=== PATIENT | male | born 1960 | race Caucasian/White ===

== ENCOUNTER 2016-11-06 17:36 | Emergency (ER) | payer OTHER ==
[~2016-11-06] VITALS: Ht 172.7 cm; Wt 89.0 kg
[2016-11-06 17:40] VITALS: Ht 172.7 cm; Wt 89.0 kg
--- NOTE | 2016-11-06 18:10 | ERA ---
ER Documentation Chief Complaint Date/Time DATE: 11/06/16 TIME: 18:09 Chief Complaint AGITATED HPI The patient is a 55-year-old male, presenting because he has aggressive behavior according to the caregiver. He threatened to kill himself if he did not get what he wanted from the caregiver. He has been agitated before but never this bad according to the caregiver. History is very limited due to his mental status, the history is obtained from the caregiver. He does not smoke nor drink Past medical history: Mentally challenged, depression, anxiety, schizophrenia X Past medical history: Unable to obtain due to his condition ROS All systems reviewed and are negative except as per history of present illness. Physical Exam Vitals Vital Signs Date Time Temp Pulse Resp B/P Pulse Ox O2 Delivery O2 Flow Rate FiO2 11/06/16 17:40 99.2 92 18 140/89 99 Physical Exam Const: No acute distress. Head: Atraumatic. Eyes: Normal Conjunctiva. ENT: Normal External Ears, Nose and Mouth. Neck: Full range of motion. No meningismus. Resp: Clear to auscultation bilaterally. Cardio: Regular rate and rhythm. Abd: Soft, non distended, normal bowel sounds, non tender. Skin: No petechiae or rashes. Back: No midline or flank tenderness. Ext: No cyanosis, or edema. Neur: Awake and alert. No focal deficit Psych: Agitated, talkative. Result Diagram: 11/06/16184911/06/16 1850 Results 24 hrs Laboratory Tests Test 11/06/16 18:50 White Blood Count 7.810^3/ul Red Blood Count 3.9810^6/ul Hemoglobin 12.8g/dl Hematocrit 37.7% Mean Corpuscular Volume 94.7fl Mean Corpuscular Hemoglobin 32.2pg Mean Corpuscular Hemoglobin Concent 34.0g/dl Red Cell Distribution Width 11.0% Platelet Count 86362^3/UL Mean Platelet Volume 9.4fl Neutrophils % 47.4% Lymphocytes % 35.5% Monocytes % 13.4% Eosinophils % 2.6% Basophils % 0.5% Nucleated Red Blood Cells % 0.0/100WBC Neutrophils # 3.710^3/ul Lymphocytes # 2.810^3/ul Monocytes # 1.110^3/ul Eosinophils # 0.210^3/ul Basophils # 0.010^3/ul Nucleated Red Blood Cells # 0.010^3/ul Urine Color YELLOW Urine Clarity CLEAR Urine pH 7.0 Urine Specific [place] 1.012 Urine Ketones NEGATIVEmg/dL Urine Nitrite NEGATIVEmg/dL Urine Bilirubin NEGATIVEmg/dL Urine Urobilinogen 1+mg/dL Urine Leukocyte Esterase NEGATIVELeu/ul Urine Microscopic RBC 10/HPF Urine Microscopic WBC 0/HPF Urine Hemoglobin 1+mg/dL Urine Glucose NEGATIVEmg/dL Urine Total Protein NEGATIVEmg/dl Sodium Level 131mmol/L Potassium Level 4.2mmol/L Chloride Level 97mmol/L Carbon Dioxide Level 27mmol/L Anion Gap 11 Blood Urea Nitrogen 14mg/dl Creatinine 0.92mg/dl Glucose Level 107mg/dl Calcium Level 8.8mg/dl Total Bilirubin 0.2mg/dl Direct Bilirubin 0.00mg/dl Indirect Bilirubin 0.2mg/dl Aspartate Amino Transf (AST/SGOT) 24IU/L Alanine Aminotransferase (ALT/SGPT) 34IU/L Alkaline Phosphatase 58IU/L Total Protein 7.0g/dl Albumin 3.9g/dl Globulin 3.10g/dl Albumin/Globulin Ratio 1.25 Salicylates Level < 1.0mg/dl Urine Opiates Screen Negative Acetaminophen Level < 10.0ug/ml Urine Barbiturates Negative Urine Amphetamines Screen Negative Urine Benzodiazepines Screen Negative Urine Cocaine Screen Negative Urine Cannabinoids Negative Ethyl Alcohol Level < 10.0mg/dl Procedures/MDM MEDICAL MAKING DECISION: Patient is a 55-year-old male, presenting with acute suicidal ideation, acute agitation. He was evaluated by tele-psychiatrist who put him on 5150 hold. He recommended Latuda; however it is not available in the pharmacy The differential diagnoses considered include but are not limited to decompensated psychiatric illness, anxiety attack, panic attack Departure Diagnosis: Primary Impression: Suicidal ideation Additional Impression: Anemia Condition: Stable Comments He is awaiting for PET evaluation The patient's blood pressure was elevated (>120/80) but appears stable without evidence of hypertension emergency or urgency. The patient was counseled about the risks of hypertension and urged to pursue outpatient monitoring and therapy within a week with their primary care physician. ELIANE SEAY MD Nov 06, 2016 18:10
[2016-11-06 19:05] LABS: BASOPHILS % 0.5 % (0.0-2.0); EOSINOPHILS # 0.2 10^3/ul (0.0-0.5); EOSINOPHILS % 2.6 % (0.0-7.0); HEMATOCRIT 37.7 % (42.0-52.0); HEMOGLOBIN 12.8 g/dl (14.0-18.0); LYMPHOCYTES # 2.8 10^3/ul (0.8-2.9); LYMPHOCYTES % 35.5 % (15.0-51.0); MEAN CORPUSCULAR HEMOGLOBIN 32.2 pg (29.0-33.0); MEAN CORPUSCULAR VOLUME 94.7 fl (82.0-101.0); MEAN PLATELET VOLUME 9.4 fl (7.4-10.4); MONOCYTE # 1.1 10^3/ul (0.3-0.9); MONOCYTES % 13.4 % (0.0-11.0); NEUTROPHIL # 3.7 10^3/ul (1.6-7.5); NEUTROPHILS % 47.4 % (39.0-77.0); PLATELET COUNT 199 10^3/UL (140-415); RED BLOOD COUNT 3.98 10^6/ul (4.70-6.10); WHITE BLOOD COUNT 7.8 10^3/ul (4.8-10.8)
[2016-11-06 19:07] LABS: ADD UMIC YES; UR ASCORBIC ACID 20 mg/dL (NEGATIVE); UR BILIRUBIN (Dip) NEGATIVE (NEGATIVE); UR BLOOD (Dip) 1+ mg/dL (NEGATIVE); UR CLARITY CLEAR (CLEAR); UR COLOR YELLOW (YELLOW); UR GLUCOSE (Dip) NEGATIVE (NEGATIVE); UR KETONES (Dip) NEGATIVE (NEGATIVE); UR LEUKOCYTE ESTERASE (Dip) NEGATIVE Leu/ul (NEGATIVE); UR NITRITE (Dip) NEGATIVE (NEGATIVE); UR RBC 10 /HPF (0-5); UR SPECIFIC GRAVITY (Dip) 1.012 (1.003-1.030); UR TOTAL PROTEIN (Dip) NEGATIVE (NEGATIVE); UR UROBILINOGEN (Dip) 1+ mg/dL (NEGATIVE)
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
[2016-11-06 19:23] LABS: ALANINE AMINOTRANSFERASE 34 IU/L (13-69); ALBUMIN 3.9 g/dl (3.3-4.9); ALBUMIN/GLOBULIN RATIO 1.25; ALKALINE PHOSPHATASE 58 IU/L (42-121); ANION GAP 11 (8-16); ASPARTATE AMINO TRANSFERASE 24 IU/L (15-46); BILIRUBIN,INDIRECT 0.2 mg/dl (0-1.1); BILIRUBIN,TOTAL 0.2 mg/dl (0.2-1.3); BLOOD UREA NITROGEN 14 mg/dl (7-20); CALCIUM 8.8 mg/dl (8.4-10.2); CARBON DIOXIDE 27 mmol/L (21-31); CHLORIDE 97 mmol/L (97-110); CREATININE 0.92 mg/dl (0.61-1.24); GLUCOSE 107 mg/dl (70-220); POTASSIUM 4.2 mmol/L (3.5-5.1); SODIUM 131 mmol/L (135-144)
[2016-11-06 19:24] LABS: ACETAMINOPHEN < 10.0 ug/ml (10.0-30.0); ETHANOL < 10.0 mg/dl; SALICYLATE < 1.0 mg/dl (5.0-30.0)
[2016-11-06 19:27] LABS: BARBITURATES Negative (NEGATIVE); BENZODIAZEPINES Negative (NEGATIVE); CANNABINOIDS Negative (NEGATIVE); COCAINE Negative (NEGATIVE); OPIATES Negative (NEGATIVE)
[2016-11-06] MEDS ORDERED: LORAZEPAM 1 MG TAB PO ONE (21:30)
[2016-11-06] MEDS ORDERED: DIVA500T15 PO (21:57)
[2016-11-06] MEDS ORDERED: FURO40TA4 PO (21:57)
[2016-11-06] MEDS ORDERED: POTA20TA96 PO (21:58)
[2016-11-06] MEDS ORDERED: ESCI20TA38 PO (21:59)
[2016-11-06] MEDS ORDERED: CARV6.2579 PO (21:59)
[2016-11-06] MEDS ORDERED: LEVO50TA74 PO (22:00)
[2016-11-06] MEDS ORDERED: OMEP20CA16 PO (22:00)
[2016-11-06] MEDS ORDERED: LOSA100T7 PO (22:01)
[2016-11-06] MEDS ORDERED: MELO-216 PO (22:03)
[2016-11-06] MEDS ORDERED: SIMV20TA PO (22:04)
[2016-11-06] MEDS ORDERED: ALLO100T PO (22:05)
[2016-11-06] MEDS ORDERED: THIA100T56 PO (22:06)
[2016-11-06] MEDS ORDERED: LURA40TA PO (22:06)
[2016-11-07] MEDS ORDERED: HALOPERIDOL 5 MG INJ IM STA (05:28)
[2016-11-07] MEDS ORDERED: DIPHENHYDRAMINE 50 MG INJ IM ONE ×2 (05:30)
[2016-11-07] MEDS ORDERED: LORAZEPAM 2 MG INJ IM ONE ×3 (05:30→12:30)
--- NOTE | 2016-11-07 05:52 | EN ---
Date/Time of Note Date/Time of Note DATE: 11/07/16 TIME: 05:52 ER Progress Note 4Observation Note: Time: [4] hours Family Hx: No Hypertension Evaluation: Multiple exams showed improving symptoms and no evidence of psychiatric decompensation FERNANDO NARVAEZ Nov 07, 2016 05:52
[2016-11-07] MEDS ORDERED: LORAZEPAM 1 MG TAB PO ONE ×2 (12:30→19:00)
[2016-11-07] MEDS ORDERED: HALOPERIDOL 5 MG INJ IM ONE ×2 (12:30)
[2016-11-07 21:19] VITALS: TEMP 98.1
[2016-11-07 23:45] VITALS: BP 168/84; PULSE 89; RESP 20
== END 2016-11-08 00:23 ==
LOC: E/R 17:36
DX: R45.851 Suicidal ideations (principal); R40.2252 Coma scale, best verbal response, oriented, at arrival to emergency department; D64.9 Anemia, unspecified; R40.2142 Coma scale, eyes open, spontaneous, at arrival to emergency department; R40.2362 Coma scale, best motor response, obeys commands, at arrival to emergency department
CPT/HCPCS: 80053; 80306; 80307; 81001; 85025; 96372; J1200; J1630; J2060; Z7502; Z7610